=== PATIENT | male | born 1980 | race Two or more races ===

== ENCOUNTER 2018-01-07 16:15 | Emergency (ER) | payer OTHER ==
[2018-01-07] MEDS ORDERED: Diph,Pert(Acell),Tet Vac 0.5 ML SYR IM ONE (16:26)
--- NOTE | 2018-01-07 16:28 | Emergency Department Record ---
History of Present Illness - General Chief Complaint: Laceration(s) Time Seen by Provider: 01/07/18 16:25 Source: Patient Mode of Arrival: Ambulatory Limitations: No limitations - History of Present Illness Initial Commments: Right hand dominate from work where left hand hit lens grinder and polisher wheel. Pain and injury to dorsal knuckles. No other injury. Unknown last Td Onset/Timin -: Minutes(s) Extremity Location: Left: Hand Place: Work Context: Accidental, Power tool use Associated Symptoms: None Treatments Prior to Arrival: Bandage - Related Data Hx Tetanus Toxoid Vaccination: Yes Patient Tetanus UTD (within 5 yrs): No Home Medications Medication Instructions Recorded Confirmed Last Taken No Home Med [NO HOME MEDS] 01/07/18 01/07/18 Unknown Allergies Allergy/AdvReac Type Severity Reaction Status Date / Time No Known Drug Allergies Allergy Verified 01/07/18 16:23 Travel Screening - Travel/Exposure Within Last 30 Days Have you traveled within the last 30 days?: No Review of Systems Constitutional: Denies: Chills, Fever Eyes: Denies: Eye pain ENT: Denies: Congestion Respiratory: Denies: Cough Cardiovascular: Denies: Chest pain Endocrine: Denies: Fatigue Gastrointestinal: Denies: Abdominal pain Musculoskeletal: Denies: Arthralgia, Back pain, Joint swelling Skin: Reports: As per HPI Neurological: Denies: Headache Past Medical History - SOCIAL HISTORY Smoking Status: Current every day smoker Alcohol Use: Occasional Drug Use: None - RESPIRATORY Hx Respiratory Disorders: No - CARDIOVASCULAR Hx Cardio Disorders: No - NEURO Hx Neuro Disorders: No - GI Hx GI Disorders: No - Hx Genitourinary Disorders: No - ENDOCRINE Hx Endocrine Disorders: No - MUSCULOSKELETAL Hx Musculoskeletal Disorders: No - PSYCH Hx Psych Problems: No - HEMATOLOGY/ONCOLOGY Hx Hematology/Oncology Disorders: No Family Medical History Any Significant Family History?: No Physical Exam - General General Appearance: Alert, Oriented x3, Cooperative, No acute distress - Head Head exam: Atraumatic - Eye Eye exam: Normal appearance - ENT ENT exam: Normal exam - Neck Neck exam: Normal inspection - Respiratory Respiratory exam: Normal lung sounds bilaterally - Cardiovascular Cardiovascular Exam: Regular rate, Normal rhythm - Extremities Extremities exam: Full ROM, Normal capillary refill, Tenderness Image of Hand: 1 - Deep abrasions to 2nd and 3rd MCP dorsal to tendon sheath. No FB seen. No tendon injury. - Neurological Neurological exam: Alert, Altered, Normal gait, Oriented X3 - Psychiatric Psychiatric exam: Normal affect, Normal mood Course Vital Signs 01/07/18 16:19 Temperature 98.2 F Pulse Rate 87 Respiratory 16 Rate Blood Pressure 150/74 Pulse Ox 96 - Reevaluation(s) Reevaluation #1: 01/07/18 17:30 Wound cleaned by self washing for 5 min at sink with hebiclense. No FB in wound - examined to base. Dressing applied. Disposition Disposition: Discharge Clinical Impression: Abrasion of left hand, initial encounter Disposition: Home, Self-Care Return To Work/School Note Provided: Yes Condition: (1) Good Instructions: Laceration (ED) Additional Instructions: Continue to wash gentle daily with mild soap. Apply antibiotic ointment and adaptic dressing. Recheck here in the ER in 48 hours to recheck wound. Forms: Patient Portal Access Quality - Quality Measures Quality Measures: N/A - Blood Pressure Screening Does Patient Have Any of the Following: No Blood Pressure Classification: Hypertensive Reading Systolic Measurement: 150 Diastolic Measurement: 74 Screening for High Blood Pressure: < Pre-Hypertensive BP, F/U Documented > [ G8950] Pre-Hypertensive Follow-up Interventions: Lifestyle modifications. Lifestyle Modification: Dietary Sodium Restriction
--- NOTE | 2018-01-09 20:50 | RADIOLOGY REPORT ---
EXAM: HAND, LEFT 3 VIEWS HISTORY: WORK-RELATED INJURY. TECHNIQUE: Three views of the left hand. COMPARISON: None. ENCOUNTER: Initial. FINDINGS: There is normal bone mineralization. No fracture, dislocation, or destructive bone lesion is seen. The articular relations are maintained. No periarticular erosion. No focal soft tissue abnormality. IMPRESSION: NO ACUTE FRACTURE NOR DISLOCATION IDENTIFIED. NO FOREIGN BODY IDENTIFIED. JOB NUMBER: [id number] MTDD
== END 2018-01-07 17:42 | disposition home or self-care (01) ==
LOC: ER 16:15
DX: S60.411A Abrasion of left index finger, initial encounter (principal); S60.413A Abrasion of left middle finger, initial encounter; W31.1XXA Contact with metalworking machines, initial encounter; F17.210 Nicotine dependence, cigarettes, uncomplicated; Y92.63 Factory as the place of occurrence of the external cause; Y99.0 Civilian activity done for income or pay
CPT/HCPCS: 90715; 96372; 99283

== ENCOUNTER 2018-01-09 13:57 | Observation (INO) | payer OTHER ==
[2018-01-09] MEDS ORDERED: CEFAZOLIN 2 Gram 2 GM/50 ML BAG IVPB ONE (14:11)
[2018-01-09] MEDS ORDERED: NAPROXEN 250 MG TABLET PO ONE (14:14)
--- NOTE | 2018-01-09 14:14 | Emergency Department Record ---
History of Present Illness - General Chief Complaint: Wound, check Stated Complaint: HAND RECHECK Time Seen by Provider: 01/09/18 14:01 Source: Patient Mode of arrival: Ambulatory Limitations: No limitations - History of Present Illness Initial Comments: The patient is here due to developing abrasions to his L dorsal hand 2 days ago at work. He injured it on a grinding wheel. The patient was seen here and had neg xrays and did have the hand cleaned up and dressed. Now he is here for recheck. The patient states the hand is painful and slightly swollen. His Td is UTD. Complaint: Wound re-check Onset/Timin -: Days(s) Initial Visit For: Other Returns Today for: Wound recheck Symptoms Since Prior Visit: Worsening pain, Worsening swelling Associated Symptoms: None - Related Data Allergies Allergy/AdvReac Type Severity Reaction Status Date / Time No Known Drug Allergies Allergy Verified 01/09/18 14:00 Travel Screening - Travel/Exposure Within Last 30 Days Have you traveled within the last 30 days?: No - Travel/Exposure Within Last Year Have you traveled outside the [place] in the last year?: No - Additonal Travel Details Have you been exposed to anyone with a communicable illness?: No - Travel Symptoms Symptom Screening: None Past Medical History - SOCIAL HISTORY Smoking Status: Current every day smoker Alcohol Use: Occasional Drug Use: None - RESPIRATORY Hx Respiratory Disorders: No - CARDIOVASCULAR Hx Cardio Disorders: No - NEURO Hx Neuro Disorders: No - GI Hx GI Disorders: No - Hx Genitourinary Disorders: No - ENDOCRINE Hx Endocrine Disorders: No - MUSCULOSKELETAL Hx Musculoskeletal Disorders: No - PSYCH Hx Psych Problems: No - HEMATOLOGY/ONCOLOGY Hx Hematology/Oncology Disorders: No Family Medical History Any Significant Family History?: No Physical Exam - General General Appearance: Alert, Oriented x3, Cooperative, No acute distress - Head Head exam: Atraumatic, Normocephalic, Normal inspection - Eye Eye exam: Normal appearance, PERRL - Neck Neck exam: Normal inspection, Full ROM. negative: Tenderness - Respiratory Respiratory exam: Normal lung sounds bilaterally. negative: Respiratory distress - Cardiovascular Cardiovascular Exam: Regular rate, Normal rhythm, Normal heart sounds - Extremities Extremities exam: negative: Normal inspection (There are circular abrasions over the L dorsal 2nd and 3rd MTP areas. The dorsal hand is slightly erythematous, warm and tender. The patient does have ROM of the fingers with mild pain. ) Course Vital Signs 01/09/18 14:02 Temperature 98.3 F Pulse Rate 80 Respiratory 20 Rate Blood Pressure 143/94 Pulse Ox 97 - Reevaluation(s) Reevaluation #1: Due to the appearance of the L hand I did recommend hospital admission for IV Abx's and the patient agreed. We will discuss the case with the admitting team to get the OK. 01/09/18 14:36 Reevaluation #2: I did discuss the case with Gabrielle (DIRECTOR OF UNDERGRADUATE ADMISSIONS) and she does accept the patient for admission. 01/09/18 14:42 Disposition Disposition: Admit Clinical Impression: Cellulitis of hand, left Disposition: Still a Patient at [facility] Decision to Admit: Admit from ER Decision to Admit Date: 01/09/18 Decision to Admit Time: 14:43 Accepting Physician: Jhonny Time Discussed w/Accepting Physician: 14:43 Condition: (2) Stable Time of Disposition: 14:43 Quality - Quality Measures Quality Measures: N/A - Blood Pressure Screening View Details: Yes Does Patient Have Any of the Following: No Blood Pressure Classification: Hypertensive Reading Systolic Measurement: 143 Diastolic Measurement: 95 Screening for High Blood Pressure: < First Hypertensive BP, F/U Documented > [ G8950] First Hypertensive Follow-up Interventions: Referral to alternative/primary care provider.
[2018-01-09] MEDS ORDERED: CLINDAMYCIN 600MG/50ML PREMIX 600 MG/50 ML BAG IVPB ONE (14:48)
[2018-01-09] MEDS ORDERED: ACETAMINOPHEN 500 MG TABLET PO PRN (16:10)
--- NOTE | 2018-01-09 17:43 | History & Physical ---
History of Present Illness - Date of Service Date of Service for History & Physical: 01/09/18 - History of Present Illness Admitting Diagnosis: 1. Left Hand Cellulitis. 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 No PMH Pt reports that 2 days ago, left hand got caught in grinder operator tool at work, deep abrasions to first and second MCP. Original injury documented on pt phone, shows open abrasions with soft tissue, tendon, and bone exposed. Was seen in [facility] ER, had wound cleaned, dressed and XR negative for FX/FB. No ABX given at first visit, instructions to apply OTC ABX ointment to abrasion, clean wound and change dressing at home. Pt went back to work "light duty" and reports saturating bandages twice a day with yellow/green pus drainage for first and second day, had localized edema to injury. Today, reports edema that has spread to the wrist with increased warmth and pain. Pt presents to ER, ambulatory, with c/o increased redness and swelling of left hand s/p trauma from grinder operator tool. 98.3F, HR 80, BP 143/94, RR 20, 97% RA, pain 10/10 No labs completed. Given Naprosyn 500mg PO, Cefazolin 2gm and Clindamycin 600mg IVPB. 01/09/18 POC Clindamycin 600mg IVPB q 8hrs, if improved redness/swelling, transition to PO bactrim and referral to hand specialist. Pain mgt with naprosyn, tylenol, and T3 for mod/severe pain. Keep hand elevated, erythema outlined with skin marker. Travel Screening - Travel/Exposure Within Last 30 Days Have you traveled within the last 30 days?: No - Travel/Exposure Within Last Year Have you traveled outside the [place] in the last year?: No - Additonal Travel Details Have you been exposed to anyone with a communicable illness?: No - Travel Symptoms Symptom Screening: None Review of Systems Constitutional: Denies: Chills, Fever Eyes: Reports: As per HPI. Denies: Eye discharge ENT: Reports: As per HPI. Denies: Congestion Respiratory: Reports: As per HPI. Denies: Cough Cardiovascular: Reports: As per HPI. Denies: Arrhythmia, Chest pain Endocrine: Reports: As per HPI. Denies: Fatigue Gastrointestinal: Reports: As per HPI. Denies: Abdominal pain, Constipation Genitourinary: Reports: As per HPI Musculoskeletal: Reports: Joint swelling Skin: Denies: Bruising Neurological: Denies: Headache, Numbness Psychiatric: Denies: Anxiety Hematological/Lymphatic: Denies: Anemia, Easy bruising Past Medical History - SOCIAL HISTORY Smoking Status: Current every day smoker Alcohol Use: Occasional Drug Use: None - RESPIRATORY Hx Respiratory Disorders: No - CARDIOVASCULAR Hx Cardio Disorders: No - NEURO Hx Neuro Disorders: No - GI Hx GI Disorders: No - Hx Genitourinary Disorders: No - ENDOCRINE Hx Endocrine Disorders: No - MUSCULOSKELETAL Hx Musculoskeletal Disorders: No - PSYCH Hx Psych Problems: No - HEMATOLOGY/ONCOLOGY Hx Hematology/Oncology Disorders: No Family Medical History Any Significant Family History?: No H&P Meds/Allergies - Allergies Allergies: Allergies Allergy/AdvReac Type Severity Reaction Status Date / Time No Known Drug Allergies Allergy Verified 01/09/18 14:00 - Active Medications Active Medications: Current Medications Acetaminophen (Tylenol 500mg Tab) 500 mg PO Q6H PRN PRN Reason: PAIN - MILD(1-4)/FEVER Last Admin: 01/09/18 16:54 Dose: 500 mg Clindamycin Phosphate (Cleocin 600 [id number]) 600 mg in 50 mls @ 100 mls/ hr IVPB Q8H JAYESH Naproxen (Naprosyn) 500 mg PO Q12H JAYESH Physical Exam - Vital Signs Vital Signs: Vital Signs - Last 24 Hrs Temp Pulse Pulse Resp BP BP Pulse Ox 01/09/18 16:00 98.1 F 70 16 145/96 95 01/09/18 15:53 72 18 143/95 98 01/09/18 14:02 98.3 F 80 20 143/94 97 - General General Appearance: Alert, Oriented x3, Cooperative, No acute distress Limitations: No limitations - Head Head exam: Atraumatic, Normocephalic, Normal inspection - Eye Eye exam: Normal appearance, PERRL - ENT ENT exam: Mucous membranes moist Ear exam: Normal external inspection Teeth exam: Normal inspection - Neck Neck exam: Normal inspection, Full ROM. negative: Tenderness - Respiratory Respiratory exam: Normal lung sounds bilaterally. negative: Respiratory distress - Cardiovascular Cardiovascular Exam: Regular rate, Normal rhythm, Normal heart sounds Peripheral Pulses: 2+: Radial (R), Radial (L) - Rectal Rectal exam: Deferred - exam: Deferred - Extremities Extremities exam: negative: Normal inspection (There are circular abrasions over the L dorsal 2nd and 3rd MTP areas. The dorsal hand is slightly erythematous, warm and tender. The patient does have ROM of the fingers with mild pain. ) - Back Back exam: Reports: Normal inspection - Neurological Neurological exam: Alert, Oriented X3 - Psychiatric Psychiatric exam: Normal affect, Normal mood - Skin Skin exam: Abrasion, Erythema, Warm Type of lesion: abrasion (left MCP 2 and 3) VTE H&P Assessment - Risk for VTE Risk for VTE: Yes Risk Level: Very Low Risk Assessment Date: 01/09/18 Risk Assessment Time: 17:56 VTE Orders Placed or Will Be Placed: Yes Plan - Detailed Diagnosis and Plan (1) Cellulitis of hand, left Current Visit: Yes Status: Acute Base Code: L03.114 - CELLULITIS OF LEFT UPPER LIMB Comment: 01/09/18 -pt returns for cellulitis of left hand s/p trauma with grinder operator tool. -starting clindamycin 600mg IVPB q8 -transition to bactrim in AM for home -referral to hand specialist
[2018-01-09] MEDS: CLINDAMYCIN 600MG/50ML PREMIX 600 MG/50 ML BAG IVPB SCH (21:16)
[2018-01-09] MEDS: NAPROXEN 250 MG TABLET PO SCH (21:16)
[2018-01-09] MEDS: ACETAMINOPHEN W/ CODEINE 300MG/30MG TABLET PO PRN (22:19)
[2018-01-10] MEDS: CLINDAMYCIN 600MG/50ML PREMIX 600 MG/50 ML BAG IVPB SCH ×2 (05:26→13:38)
[2018-01-10] MEDS: ACETAMINOPHEN W/ CODEINE 300MG/30MG TABLET PO PRN (05:33)
[2018-01-10] MEDS: NAPROXEN 250 MG TABLET PO SCH (09:34)
[2018-01-10] MEDS ORDERED: ENOXAPARIN 40 MG/0.4 ML SYR SQ SCH (10:00)
--- NOTE | 2018-01-10 10:57 | Discharge Summary ---
Providers Discharge Summary Date: 01/10/18 Date of admission: 01/09/18 15:57 Expected Date of Discharge: 01/10/18 Attending physician: FLAKO MUELLER Primary care physician: [facility] provider group Consults: Pt given contact info for Dr Alford- hand surgeon for follow up appointment. Pt has to call himself to make appointment. Physical Exam - Vital Signs Vital Signs: Vital Signs - Last 24 Hrs Temp Pulse Pulse Resp BP BP Pulse Ox 01/10/18 09:00 16 01/10/18 08:00 98.1 F 70 16 126/70 98 01/09/18 21:00 98.7 F 62 18 131/78 97 01/09/18 16:00 98.1 F 70 16 145/96 95 01/09/18 15:53 72 18 143/95 98 01/09/18 14:02 98.3 F 80 20 143/94 97 - General General Appearance: Alert, Oriented x3, Cooperative, No acute distress Limitations: No limitations - Head Head exam: Atraumatic, Normocephalic, Normal inspection - Eye Eye exam: Normal appearance, PERRL - ENT ENT exam: Mucous membranes moist Ear exam: Normal external inspection Teeth exam: Normal inspection - Neck Neck exam: Normal inspection, Full ROM. negative: Tenderness - Respiratory Respiratory exam: Normal lung sounds bilaterally. negative: Respiratory distress - Cardiovascular Cardiovascular Exam: Regular rate, Normal rhythm, Normal heart sounds Peripheral Pulses: 2+: Radial (R), Radial (L) - Rectal Rectal exam: Deferred - exam: Deferred - Extremities Extremities exam: negative: Normal inspection (There are circular abrasions over the L dorsal 2nd and 3rd MTP areas. The dorsal hand is slightly erythematous, warm and tender. The patient does have ROM of the fingers with mild pain. ) - Back Back exam: Reports: Normal inspection - Neurological Neurological exam: Alert, Oriented X3 - Psychiatric Psychiatric exam: Normal affect, Normal mood - Skin Skin exam: Abrasion, Erythema, Warm Type of lesion: abrasion (left MCP 2 and 3) Hospitalization - Hospitalization Admission Diagnosis: 1. Left Hand Cellulitis. 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 -starting clindamycin 600mg IVPB q8 -transition to bactrim in AM for home -referral to hand specialist 01/10/18 -erythema and swelling has decreased, receeding behind skin marking -ROM increased with less pain -scant discharge -pt given info to make appt with hand surgeons, establishing care with [facility] and to be [place] patient - Hospitalization Course Disposition: Home, Self-Care Condition at Discharge: (2) Stable Discharge Medications - Discharge Medications Prescriptions: Acetaminophen [Tylenol 500Mg Tab] 500 mg PO Q6H PRN #15 tablet PRN Reason: Pain - Mild(1-4)/Fever Naproxen [Naprosyn] 500 mg PO Q12H PRN #20 tablet PRN Reason: Pain - Mild To Moderate (1-7) Home Medications: Ambulatory Orders Acetaminophen [Tylenol 500Mg Tab] 500 mg PO Q6H PRN #15 tablet 01/10/18 [Last Taken Unknown] Naproxen [Naprosyn] 500 mg PO Q12H PRN #20 tablet 01/10/18 [Last Taken Unknown] Sulfamethoxazole/Trimethoprim [Bactrim Ds Tablet] 1 each PO BID 10 Days #20 tablet 01/10/18 [Last Taken Unknown] Discharge Plan - Discharge Instructions Activity at Discharge: Increase Activity as Tolerated Diet at Discharge: Regular Diet Wound Primary Dressing Type: maintain splint Additional Instructions: Referral has been made to Dr. Alford at [facility]. The office will call you to schedule. Please call if you have not heard from them in a few days. # [phone]. You have been referred to [facility] for primary care. An appointment to establish care with Gabrielle Anne, has been scheduled on: Saturday at 2:40PM at [facility]. You will be able to start seeing your provider at [facility] after this appointment. Quality Measures - Quality Measures Quality Measures: Documentation of Current Medications in Medical Record, Screening for High Blood Pressure and F/U Documented - Current Medications Quality Measure: Measure #130: Documentation of Current Medications Documentation of Current Medications: <Current Medications Documented/Reviewed> [G8427] - Blood Pressure Screening Quality Measure: Screening for High Blood Pressure and Follow-Up Documented Does Patient Have Any of the Following: No Blood Pressure Classification: Hypertensive Reading Systolic Measurement: 143 Diastolic Measurement: 95 Screening for High Blood Pressure: < First Hypertensive BP, F/U Documented > [ G8950] First Hypertensive Follow-up Interventions: Referral to alternative/primary care provider. - Elder Abuse Suspicion Index EASI Reference Information: Kole CASILLAS, Alvin Horowitz, Taylor Allen, Ronnell Delcid.Development and validation of a tool to assist physicians identification of elder abuse: The Elder Abuse Suspicion Index (EASI ). Journal of Elder Abuse and Neglect, 2008; 20 (3): 276-300.
== END 2018-01-10 14:40 | disposition home or self-care (01) ==
LOC: ER 13:57 → MEDSURG 15:57
PROVIDERS: ADMIT Internal Medicine; ATTEND Internal Medicine
DX: L03.114 Cellulitis of left upper limb (principal); F17.210 Nicotine dependence, cigarettes, uncomplicated
CPT/HCPCS: 96365; 96366; 99220; 99226; 99285; J1650